=== PATIENT | female | born 1990 | race Caucasian/White ===

== ENCOUNTER 2016-12-17 15:11 | Emergency (ER) | payer OTHER ==
[2016-12-17 15:22] VITALS: RESP 18
--- NOTE | 2016-12-17 16:00 | XR ---
EXAMINATION TYPE: XR wrist complete RT DATE OF EXAM: 12/17/2016 3:54 PM CLINICAL HISTORY: pain TECHNIQUE: Frontal, lateral and oblique images of the right wrist are obtained. COMPARISON: None. FINDINGS: Minimally displaced ulnar styloid fracture. No additional fracture seen. Mild soft tissue swelling. IMPRESSION: Ulnar styloid fracture. ICD 10 closed FRACTURE, INITIAL EVALUATION
--- NOTE | 2016-12-17 16:33 | ED ---
General Adult HPI - General Chief complaint: Extremity Injury, Upper Stated complaint: rt arm Fx Time Seen by Provider: 12/17/16 16:05 Source: patient, RN notes reviewed Mode of arrival: ambulatory Limitations: no limitations - History of Present Illness Initial comments: This is a 26-year-old female who presents with right wrist pain after a known fracture to the ulnar styloid. Patient states she fractured her wrist 4 weeks ago and accidentally got her cast wet 2 weeks after this diagnosis, causing it fall off. Patient never followed up and has been using the right wrist for the last 2 weeks after her cast fell off. Patient states she wrapped her arm with an Jose wrap last night and woke up with pain. Patient states she was concerned for the increasing pain. Patient denies any numbness/tingling or weakness.Patient denies any recent fever, chills, shortness breath, chest pain, abdominal pain, nausea/vomiting/diarrhea, back pain, hematuria, headache, or visual changes, or any other complaints. - Related Data Home Medications Medication Instructions Recorded Confirmed ARIPiprazole [Abilify] 10 mg PO DAILY@0600 12/17/16 12/17/16 Acetaminophen [Tylenol Arthritis] 650 mg PO Q4H PRN 12/17/16 12/17/16 Amoxicillin 500 mg PO TID@0630,1530,2200 12/17/16 12/17/16 Bisacodyl 5 mg PO BID PRN 12/17/16 12/17/16 Calcium/Magnesium 1000mg/500mg 1 tab PO TID PRN 12/17/16 12/17/16 Chlorpheniramine Maleate 4 mg PO Q4H PRN 12/17/16 12/17/16 [Chlor-Trimeton] Docusate [Colace] 100 mg PO BID 12/17/16 12/17/16 Hyoscyamine Sulfate [Levsin-Sl] 0.125 mg SL QID PRN 12/17/16 12/17/16 Ibuprofen [Motrin] 800 mg PO Q6H PRN 12/17/16 12/17/16 Loperamide [Imodium] 2 mg PO QID PRN 12/17/16 12/17/16 Magnesium Hydroxide [Milk of 2,400 mg PO BID PRN 12/17/16 12/17/16 Magnesia] Mirtazapine [Remeron] 15 mg PO HS@2030 PRN 12/17/16 12/17/16 Multivitamins, Thera [Multivitamin] 1 tab PO DAILY 12/17/16 12/17/16 Ondansetron HCl [Zofran] 8 mg PO Q6H PRN 12/17/16 12/17/16 Ondansetron [Zofran] 4 mg IM Q6H PRN 12/17/16 12/17/16 PHENobarbital [Luminal] 32.4 mg PO DIRECTED 12/17/16 12/17/16 Polyethylene Glycol 3350 [Miralax] 17 gm PO DAILY 12/17/16 12/17/16 Thiamine [Vitamin B-1] 100 mg PO DAILY 12/17/16 12/17/16 Trimethobenzamide [Tigan] 100 mg IM Q6HR PRN 12/17/16 12/17/16 Trimethobenzamide [Tigan] 300 mg PO Q6H PRN 12/17/16 12/17/16 busPIRone HCl [Buspar] 10 mg PO TID PRN 12/17/16 12/17/16 Allergies Allergy/AdvReac Type Severity Reaction Status Date / Time bupropion [From Wellbutrin] Allergy Rash/Hives Verified 12/17/16 16:09 oxcarbazepine Allergy Rash/Hives Verified 12/17/16 16:09 [From Trileptal] Review of Systems ROS Statement: Those systems with pertinent positive or pertinent negative responses have been documented in the HPI. ROS Other: All systems not noted in ROS Statement are negative. Past Medical History Additional Past Medical History / Comment(s): bipolar History of Any Multi-Drug Resistant Organisms: MRSA Date of last positivie culture/infection: 2007 MDRO Source:: buttock/axilla Past Surgical History: Ear Surgery, Tonsillectomy Smoking Status: Current every day smoker Past Alcohol Use History: None Reported Past Drug Use History: None Reported, Prescription Drug Abuse General Exam - General Exam Comments Initial Comments: General: The patient is awake and alert, in no distress, and does not appear acutely ill. Neck: The neck is supple, there is no tenderness or JVD. Cardiovascular: There is a regular rate and rhythm. No murmur, rub or gallop is appreciated. Respiratory: Lungs are clear to auscultation, respirations are non-labored, breath sounds are equal. No wheezes, stridor, rales, or rhonchi. Musculoskeletal: There is tenderness to palpation over the ulnar aspect of the right wrist, no swelling, erythema or ecchymosis. Patient has full range of motion, strength 5/5 and Sensation intact. Radial pulses are 2+ bilaterally. Capillary refill is normal at less than 2 seconds. Sanitation Supervisor strength equal. Neurological: A&O x 3. CN II-XII intact, There are no obvious motor or sensory deficits. Coordination appears grossly intact. Speech is normal. Skin: Skin is warm and dry and no rashes or lesions are noted. Psychiatric: Normal mood and affect. Limitations: no limitations Course Vital Signs 12/17/16 15:17 Temperature 97.6 F Pulse Rate 79 Respiratory 18 Rate Blood Pressure 141/78 O2 Sat by Pulse 99 Oximetry Medical Decision Making - Medical Decision Making This is a 26-year-old female presents with a fractured wrist 4 weeks without a cast 2 weeks. On physical exam There is tenderness to palpation over the ulnar aspect of the right wrist, no swelling, erythema or ecchymosis. Patient has full range of motion, strength 5/5 and Sensation intact. Radial pulses are 2+ bilaterally. Capillary refill is normal at less than 2 seconds. An x-ray of the right wrist was done and reviewed showing: Ulnar styloid fracture. Report read by Dr. Gallegos. I discussed the results with patient and that she will be resplinted. A short arm volar splint to the right upper extremity was placed. Neurovascular was rechecked and is intact. Patient was instructed to stay non-weightbearing to the right upper extremity. Patient was instructed to rest, ice, elevate and keep splint on and do not get it wet until follow-up with orthopedics. Discussed Tylenol and Motrin for pain. Discussed with patient to follow-up with orthopedics in the next 1-2 days. Please return to the EC symptoms worsen or for any other concerns. Patient was receptive to this plan and patient will be discharged home. Disposition Clinical Impression: Fracture of right ulnar styloid Disposition: HOME SELF-CARE Condition: Good Instructions: Wrist Fracture in Adults (ED) Additional Instructions: Please rest, ice, elevate, and use splint for support. Please do not get splint wet. Please stay nonweightbearing to the right upper extremity. Please use [id number] Motrin and/or Tylenol for pain. Please follow up with orthopedics tomorrow or as soon as possible. Please return to the EC for any worsening symptoms or for any further concerns. Referrals: None,Stated [Primary Care Provider] - 1-2 days Franny Payne MD [STAFF PHYSICIAN] - 1-2 days Kat Maria DO [Doctor of Osteopathic Medicine] - 1-2 days Time of Disposition: 16:36
[2016-12-17 16:43] VITALS: BP 138/75; PULSE 98; TEMP 97.8
== END 2016-12-17 17:07 | disposition home or self-care (01) ==
LOC: EC 15:11
DX: S52.611A Displaced fracture of right ulna styloid process, initial encounter for closed fracture (principal); X58.XXXA Exposure to other specified factors, initial encounter; Z46.89 Encounter for fitting and adjustment of other specified devices; F31.9 Bipolar disorder, unspecified; F17.200 Nicotine dependence, unspecified, uncomplicated; Z79.899 Other long term (current) drug therapy; Z88.8 Allergy status to other drugs, medicaments and biological substances
CPT/HCPCS: 29125; 99283

== ENCOUNTER 2017-02-21 15:21 | Emergency (ER) | payer OTHER ==
[2017-02-21] MEDS ORDERED: SODIUM CHLORIDE 0.9% 1,000 ML IV STA ×2 (15:53)
[2017-02-21] MEDS ORDERED: ONDANSETRON 4 MG/2 ML VIAL IVP STA ×2 (15:53→17:09)
[2017-02-21] MEDS ORDERED: PANTOPRAZOLE 40 MG/10 ML VIAL IVP STA (15:53)
[2017-02-21] MEDS ORDERED: ACETAMINOPHEN IV (For NPO) 1,000 MG in SALINE 100 100ML.BAG IVPB STA (15:54)
[2017-02-21 16:13] LABS: Basophils # (A) 0.1 k/uL (0-0.2); Basophils % (A) 1 %; CH 29.3; CHCM 33.4; Eosinophils # (A) 0.1 k/uL (0-0.7); Eosinophils % (A) 1 %; HCT 40.5 % (34.0-46.0); HDW 2.19; HGB 13.5 gm/dL (11.4-16.0); Luc # (Auto) 0.27; Luc % (Auto) 3; Lymphocytes % (A) 19 %; MCH 29.5 pg (25.0-35.0); MCHC 33.5 g/dL (31.0-37.0); Mean Platelet Volume 7.3; Monocytes # (A) 0.5 k/uL (0-1.0); Monocytes % (A) 5 %; Neutrophils # (A) 7.4 k/uL (1.3-7.7); Neutrophils % (A) 71 %; RDW 13.4 % (11.5-15.5); WBC 10.4 k/uL (3.8-10.6); WBC (Perox) 10.39
[2017-02-21 16:14] LABS: Appearance,Urine Clear (Clear); Bacteria,Urine Few /hpf; Bilirubin,Urine Negative (Negative); Glucose,Urine (UA) Negative (Negative); Ketones,Urine Negative (Negative); Leukocyte Esterase,Urine Negative (Negative); Nitrite,Urine Positive (Negative); PH, Urine 5.5 (5.0-8.0); Particle Count 3964; Protein,Urine Negative (Negative); RBC,Urine 31 /hpf (0-5); Specific Gravity,Urine 1.005 (1.001-1.035); Squamous Epithelial Cell,Urine 1 /hpf (0-4); UA Billing (MACRO vs. MICRO) MICRO; Urobilinogen,Urine <2.0 mg/dL (<2.0); WBC,Urine 11 /hpf (0-5)
[2017-02-21 16:18] LABS: Partial Thromboplastin Time 26.6 sec (22.0-30.0); Prothrombin Time 10.2 sec (9.0-12.0)
[2017-02-21 16:20] LABS: ALT 32 U/L (9-52); AST 22 U/L (14-36); Alkaline Phosphatase 58 U/L (38-126); Amylase 50 U/L (30-110); Anion Gap 12 mmol/L; Blood Urea Nitrogen 13 mg/dL (7-17); Calcium 9.8 mg/dL (8.4-10.2); Carbon Dioxide 22 mmol/L (22-30); Chloride 106 mmol/L (98-107); Glucose 89 mg/dL (74-99); Non-African American GFR(MDRD) >60 (>60 ml/min/1.73 sqM); Potassium 3.8 mmol/L (3.5-5.1); Sodium 140 mmol/L (137-145); Total Bilirubin 0.3 mg/dL (0.2-1.3); Total Protein 6.8 g/dL (6.3-8.2)
--- NOTE | 2017-02-21 16:33 | ED ---
General Adult HPI - General Chief complaint: Abdominal Pain Stated complaint: flank & back pain/vomiting Time Seen by Provider: 02/21/17 15:45 Source: patient, RN notes reviewed Mode of arrival: ambulatory Limitations: no limitations - History of Present Illness Initial comments: Patient 26-year-old female with significant past medical history for ulcerative colitis, who presents emergency room today with chief complaint of symptoms of nausea vomiting diarrhea5 days. Patient does admit that she has eaten some signs of blood in her stool. She does admit that she's been experiencing pain in the right side of the abdomen. She states slightly different from her ulcerative colitis that she's had in the past. Patient does admit to several episodes of nausea vomiting. Denies any signs of blood in the emesis. She does state that she has not noticed anything that makes this better or worse. States been constant sharp at times. Currently rates it a 04/15. Denies any other complaints or symptoms. - Related Data Home Medications Medication Instructions Recorded Confirmed ARIPiprazole [Abilify] 10 mg PO DAILY@0600 12/17/16 02/21/17 Docusate [Colace] 100 mg PO BID 12/17/16 02/21/17 Hyoscyamine Sulfate [Levsin-Sl] 0.125 mg SL QID PRN 12/17/16 02/21/17 Ibuprofen [Motrin] 800 mg PO Q6H PRN 12/17/16 02/21/17 Mirtazapine [Remeron] 15 mg PO HS@2030 PRN 12/17/16 02/21/17 PHENobarbital [Luminal] 32.4 mg PO DIRECTED 12/17/16 02/21/17 Trimethobenzamide [Tigan] 100 mg IM Q6HR PRN 12/17/16 02/21/17 Trimethobenzamide [Tigan] 300 mg PO Q6H PRN 12/17/16 02/21/17 busPIRone HCl [Buspar] 10 mg PO TID PRN 12/17/16 02/21/17 Previous Rx's Medication Instructions Recorded Metoclopramide HCl [Reglan] 10 mg PO Q6HR PRN #5 day 02/21/17 Nitrofurantoin Monohyd/M-Cryst 100 mg PO Q12HR #14 cap 02/21/17 [Macrobid] Allergies Allergy/AdvReac Type Severity Reaction Status Date / Time bupropion [From Wellbutrin] Allergy Rash/Hives Verified 02/21/17 16:14 oxcarbazepine Allergy Rash/Hives Verified 02/21/17 16:14 [From Trileptal] Review of Systems ROS Statement: Those systems with pertinent positive or pertinent negative responses have been documented in the HPI. ROS Other: All systems not noted in ROS Statement are negative. Past Medical History Additional Past Medical History / Comment(s): bipolar History of Any Multi-Drug Resistant Organisms: MRSA Date of last positivie culture/infection: 2007 MDRO Source:: buttock/axilla Past Surgical History: Ear Surgery, Tonsillectomy Past Psychological History: Bipolar Smoking Status: Current every day smoker Past Alcohol Use History: None Reported Past Drug Use History: None Reported, Prescription Drug Abuse General Exam - General Exam Comments Initial Comments: General: The patient is awake and alert, in no distress, and does not appear acutely ill. Eye: Pupils are equal, round and reactive to light, extra-ocular movements are intact. No nystagmus. There is normal conjunctiva bilaterally. No signs of icterus. Ears, nose, mouth and throat: There are moist mucous membranes and no oral lesions. Neck: The neck is supple, there is no tenderness or JVD. Cardiovascular: There is a regular rate and rhythm. No murmur, rub or gallop is appreciated. Respiratory: Lungs are clear to auscultation, respirations are non-labored, breath sounds are equal. No wheezes, stridor, rales, or rhonchi. Gastrointestinal: normal appearance of the abdomen. Normal bowel sounds. Abdomen soft on palpation. Patient does have mild tenderness right lower quadrant. No rebound tenderness. No guarding. No CVA tenderness. Musculoskeletal: Normal ROM, no tenderness. Strength 5/5. Sensation intact. Pulses equal bilaterally 2+. Neurological: A&O x 3. CN II-XII intact, There are no obvious motor or sensory deficits. Coordination appears grossly intact. Speech is normal. Skin: Skin is warm and dry and no rashes or lesions are noted. Psychiatric: Cooperative, appropriate mood & affect, normal judgment. Limitations: no limitations Course Vital Signs 02/21/17 02/21/17 15:27 17:17 Temperature 99.2 F Pulse Rate 75 80 Respiratory 20 16 Rate Blood Pressure 140/65 119/56 O2 Sat by Pulse 97 99 Oximetry Medical Decision Making - Medical Decision Making Patient reexamined at this time shows no signs of distress. Patient's ultrasound negative for any evidence of acute cholecystitis. Patient's labs been reviewed. Does show evidence for urinary tract infection. Patient does admit that she's been urinating more often. Patient's currently resting comfortably. She does admit that Reglan has improved her symptoms. She denies any nausea at this time. No abdominal pain. Abdomen soft on palpation. Patient will be discharged home placed on antibiotics cover for urinary tract infection. Reglan for symptoms. Advised to follow-up with family doctor and GI specialist for her symptoms. Advised return to emergency room if any symptoms increase or worsen or for any other concerns. Patient states understanding and is in agreement. - Lab Data Result diagrams: 02/21/17 15:57 02/21/17 15:57 Lab Results 02/21/17 02/21/17 02/21/17 Range/Units 15:57 15:57 15:57 WBC 10.4 (3.8-10.6) k/uL RBC 4.60 (3.80-5.40) m/uL Hgb 13.5 (11.4-16.0) gm/dL Hct 40.5 (34.0-46.0) % MCV 88.0 (80.0-100.0) fL MCH 29.5 (25.0-35.0) pg MCHC 33.5 (31.0-37.0) g/dL RDW 13.4 (11.5-15.5) % Plt Count 241 (150-450) k/uL Neutrophils % 71 % Lymphocytes % 19 % Monocytes % 5 % Eosinophils % 1 % Basophils % 1 % Neutrophils # 7.4 (1.3-7.7) k/uL Lymphocytes # 2.0 (1.0-4.8) k/uL Monocytes # 0.5 (0-1.0) k/uL Eosinophils # 0.1 (0-0.7) k/uL Basophils # 0.1 (0-0.2) k/uL PT (9.0-12.0) sec INR (<1.1) APTT (22.0-30.0) sec Sodium 140 (137-145) mmol/L Potassium 3.8 (3.5-5.1) mmol/L Chloride 106 (98-107) mmol/L Carbon Dioxide 22 (22-30) mmol/L Anion Gap 12 mmol/L BUN 13 (7-17) mg/dL Creatinine 0.70 (0.52-1.04) mg/dL Est GFR (MDRD) Af Amer >60 (>60 ml/min/1.73 sqM) Est GFR (MDRD) Non-Af >60 (>60 ml/min/1.73 sqM) Glucose 89 (74-99) mg/dL Calcium 9.8 (8.4-10.2) mg/dL Total Bilirubin 0.3 (0.2-1.3) mg/dL AST 22 (14-36) U/L ALT 32 (9-52) U/L Alkaline Phosphatase 58 (38-126) U/L Total Protein 6.8 (6.3-8.2) g/dL Albumin 4.6 (3.5-5.0) g/dL Amylase 50 (30-110) U/L Lipase 87 (23-300) U/L Urine Color Urine Appearance (Clear) Urine pH (5.0-8.0) Ur Specific [place] (1.001-1.035) Urine Protein (Negative) Urine Glucose (UA) (Negative) Urine Ketones (Negative) Urine Blood (Negative) Urine Nitrite (Negative) Urine Bilirubin (Negative) Urine Urobilinogen (<2.0) mg/dL Ur Leukocyte Esterase (Negative) Urine RBC (0-5) /hpf Urine WBC (0-5) /hpf Ur Squamous Epith Cells (0-4) /hpf Urine Bacteria (None) /hpf Urine HCG, Qual Not Detected (Not Detectd) 02/21/17 02/21/17 Range/Units 15:57 15:57 WBC (3.8-10.6) k/uL RBC (3.80-5.40) m/uL Hgb (11.4-16.0) gm/dL Hct (34.0-46.0) % MCV (80.0-100.0) fL MCH (25.0-35.0) pg MCHC (31.0-37.0) g/dL RDW (11.5-15.5) % Plt Count (150-450) k/uL Neutrophils % % Lymphocytes % % Monocytes % % Eosinophils % % Basophils % % Neutrophils # (1.3-7.7) k/uL Lymphocytes # (1.0-4.8) k/uL Monocytes # (0-1.0) k/uL Eosinophils # (0-0.7) k/uL Basophils # (0-0.2) k/uL PT 10.2 (9.0-12.0) sec INR 1.0 (<1.1) APTT 26.6 (22.0-30.0) sec Sodium (137-145) mmol/L Potassium (3.5-5.1) mmol/L Chloride (98-107) mmol/L Carbon Dioxide (22-30) mmol/L Anion Gap mmol/L BUN (7-17) mg/dL Creatinine (0.52-1.04) mg/dL Est GFR (MDRD) Af Amer (>60 ml/min/1.73 sqM) Est GFR (MDRD) Non-Af (>60 ml/min/1.73 sqM) Glucose (74-99) mg/dL Calcium (8.4-10.2) mg/dL Total Bilirubin (0.2-1.3) mg/dL AST (14-36) U/L ALT (9-52) U/L Alkaline Phosphatase (38-126) U/L Total Protein (6.3-8.2) g/dL Albumin (3.5-5.0) g/dL Amylase (30-110) U/L Lipase (23-300) U/L Urine Color Light Yellow Urine Appearance Clear (Clear) Urine pH 5.5 (5.0-8.0) Ur Specific [place] 1.005 (1.001-1.035) Urine Protein Negative (Negative) Urine Glucose (UA) Negative (Negative) Urine Ketones Negative (Negative) Urine Blood Moderate H (Negative) Urine Nitrite Positive H (Negative) Urine Bilirubin Negative (Negative) Urine Urobilinogen <2.0 (<2.0) mg/dL Ur Leukocyte Esterase Negative (Negative) Urine RBC 31 H (0-5) /hpf Urine WBC 11 H (0-5) /hpf Ur Squamous Epith Cells 1 (0-4) /hpf Urine Bacteria Few H (None) /hpf Urine HCG, Qual (Not Detectd) Disposition Clinical Impression: Nausea vomiting and diarrhea, UTI (urinary tract infection) Disposition: HOME SELF-CARE Condition: Good Instructions: Urinary Tract Infection in Women (ED) Additional Instructions: Please use medication as discussed. Please follow-up with family doctor in the next 2 days of symptoms have not improved. Please return to emergency room if the symptoms increase or worsen or for any other concerns. Prescriptions: Metoclopramide HCl [Reglan] 10 mg PO Q6HR PRN #5 day PRN Reason: Nausea Nitrofurantoin Monohyd/M-Cryst [Macrobid] 100 mg PO Q12HR #14 cap Referrals: None,Stated [Primary Care Provider] - 1-2 days Julián Dudley MD [STAFF PHYSICIAN] - 1-2 days Franny Payne MD [STAFF PHYSICIAN] - 1-2 days Time of Disposition: 18:29
--- NOTE | 2017-02-21 16:58 | XR ---
EXAMINATION TYPE: XR KUB DATE OF EXAM: 02/21/2017 4:54 PM CLINICAL HISTORY: Right flank pain with vomiting and blood in stool as well as diarrhea for 5 days. TECHNIQUE: 2 KUB images of the abdomen are obtained COMPARISON: None. FINDINGS: Scattered gas is seen in non-distended small bowel loops. Gas and fecal material is seen in non-distended colon. There is no suspicious calcification. Lung bases are clear. Visualized osseo us structures are intact. IMPRESSION: Overall nonobstructive bowel gas pattern.
[2017-02-21] MEDS ORDERED: METOCLOPRAMIDE 5 MG/ML 2 ML VIAL IVP STA (17:23)
[2017-02-21 18:45] VITALS: BP 118/62; PULSE 63; RESP 18; TEMP 98.7
--- NOTE | 2017-02-21 18:54 | US ---
EXAMINATION TYPE: US ABDOMEN LIMITED DATE OF EXAM: 02/21/2017 6:11 PM COMPARISON: NONE CLINICAL HISTORY: Pain. EC patient with Right lateral abd. pain x 4 days, fever, nausea, vomiting EXAM MEASUREMENTS: Liver Length: 17.7 cm Gallbladder Wall: 0.1 cm CBD: 0.3 cm Right Kidney: 11.2 x 4.8 x 4.0 cm Pancreas: wnl Liver: wnl Gallbladder: wnl Evidence for sonographic Harley's sign: No CBD: wnl Right Kidney: wnl IMPRESSION: NO ACUTE PROCESS.
== END 2017-02-21 18:45 | disposition home or self-care (01) ==
LOC: EC 15:21
DX: N39.0 Urinary tract infection, site not specified (principal); R11.2 Nausea with vomiting, unspecified; R19.7 Diarrhea, unspecified; F31.9 Bipolar disorder, unspecified; Z53.20 Procedure and treatment not carried out because of patient's decision for unspecified reasons; F17.200 Nicotine dependence, unspecified, uncomplicated; Z79.899 Other long term (current) drug therapy; Z88.8 Allergy status to other drugs, medicaments and biological substances
CPT/HCPCS: 99284; 96374; 96375 ×3; 96361 ×2; 36415; 80053; 82150; 83690; 85025; 85610; 85730; 81001; 81025; 74000; 76705; J2765; J2405; J0131; C9113